=== PATIENT | male | born 1980 | race Caucasian/White ===

== ENCOUNTER 2017-05-14 13:57 | Emergency (ER) | payer OTHER ==
[~2017-05-14] VITALS: Ht 167.6 cm; Wt 75.0 kg
[2017-05-14 14:02] VITALS: Ht 167.6 cm; Wt 75.0 kg
[2017-05-14] MEDS ORDERED: METF500T4 PO (14:55)
[2017-05-14] MEDS ORDERED: CYCL-319 PO (14:56)
[2017-05-14] MEDS ORDERED: HYDR-906 PO (14:56)
[2017-05-14] MEDS ORDERED: morphine 4 MG/ML VIAL IV STA (14:57)
[2017-05-14 15:20] LABS: BASOPHIL # 0.1 10^3/ul (0.0-0.1); BASOPHILS % 0.6 % (0.0-2.0); EOSINOPHILS # 0.3 10^3/ul (0.0-0.5); EOSINOPHILS % 2.3 % (0.0-7.0); HEMATOCRIT 43.3 % (42.0-52.0); HEMOGLOBIN 14.7 g/dl (14.0-18.0); LYMPHOCYTES # 2.6 10^3/ul (0.8-2.9); LYMPHOCYTES % 20.7 % (15.0-51.0); MEAN CORPUSCULAR HEMOGLOBIN 29.3 pg (29.0-33.0); MEAN CORPUSCULAR HGB CONC 33.9 g/dl (32.0-37.0); MEAN CORPUSCULAR VOLUME 86.4 fl (82.0-101.0); MEAN PLATELET VOLUME 9.4 fl (7.4-10.4); MONOCYTE # 0.7 10^3/ul (0.3-0.9); MONOCYTES % 5.2 % (0.0-11.0); NEUTROPHIL # 8.9 10^3/ul (1.6-7.5); NEUTROPHILS % 70.7 % (39.0-77.0); PLATELET COUNT 286 10^3/UL (140-415); RED BLOOD COUNT 5.01 10^6/ul (4.70-6.10); RED CELL DISTRIBUTION WIDTH 11.9 % (11.5-14.5); WHITE BLOOD COUNT 12.6 10^3/ul (4.8-10.8)
[2017-05-14 15:29] LABS: ADD UMIC NO; UR ASCORBIC ACID NEGATIVE (NEGATIVE); UR BILIRUBIN (Dip) NEGATIVE (NEGATIVE); UR BLOOD (Dip) NEGATIVE (NEGATIVE); UR CLARITY CLEAR (CLEAR); UR COLOR STRAW (YELLOW); UR GLUCOSE (Dip) 1+ mg/dL (NEGATIVE); UR KETONES (Dip) TRACE mg/dL (NEGATIVE); UR LEUKOCYTE ESTERASE (Dip) NEGATIVE Leu/ul (NEGATIVE); UR NITRITE (Dip) NEGATIVE (NEGATIVE); UR SPECIFIC GRAVITY (Dip) 1.006 (1.003-1.030); UR TOTAL PROTEIN (Dip) NEGATIVE (NEGATIVE); UR UROBILINOGEN (Dip) NEGATIVE (NEGATIVE)
[2017-05-14 15:41] LABS: ALANINE AMINOTRANSFERASE 27 IU/L (13-69); ALBUMIN 5.1 g/dl (3.3-4.9); ALBUMIN/GLOBULIN RATIO 1.64; ALKALINE PHOSPHATASE 90 IU/L (42-121); ANION GAP 19 (8-16); ASPARTATE AMINO TRANSFERASE 19 IU/L (15-46); BILIRUBIN,INDIRECT 0.4 mg/dl (0-1.1); BILIRUBIN,TOTAL 0.4 mg/dl (0.2-1.3); BLOOD UREA NITROGEN 7 mg/dl (7-20); CALCIUM 9.9 mg/dl (8.4-10.2); CARBON DIOXIDE 26 mmol/L (21-31); CHLORIDE 103 mmol/L (97-110); CREATININE 0.58 mg/dl (0.61-1.24); GLUCOSE 182 mg/dl (70-220); POTASSIUM 3.4 mmol/L (3.5-5.1); SODIUM 145 mmol/L (135-144); TOTAL PROTEIN 8.2 g/dl (6.1-8.1)
[2017-05-14 15:46] LABS: ACETAMINOPHEN < 10.0 ug/ml (10.0-30.0); ETHANOL < 10.0 mg/dl; SALICYLATE < 1.0 mg/dl (5.0-30.0)
[2017-05-14 17:26] LABS: BARBITURATES Negative (NEGATIVE); BENZODIAZEPINES Negative (NEGATIVE); CANNABINOIDS Positive (NEGATIVE); COCAINE Negative (NEGATIVE); OPIATES Negative (NEGATIVE)
--- NOTE | 2017-05-14 18:22 | PSY ---
Date/Time of Note Date/Time of Note DATE: 05/14/17 TIME: 18:14 Psychiatric Subjective Eval Consent Pt consented to telemedicine: Yes Subjective Evaluation Patient location: emergency Chief Complaint: CHRONIC BACK PAIN UNABLE TO MANAGE PAIN Reason for consult: Suicidal statements History of present illness Pt was at a doctors visit today and made comment that he could not take the pain any longer. He reportedly said he had a plan to cut himself. Office called [employer] and [employer] brought him to the ER. Pt reports back surgery with "screws that impinge my nerve." He reports feeling in severe pain. He also admits to feeling depressed, anhedonic, not sleeping but 3-4 hours a night (pain issues), low energy, problems with memory and concentration and frequent thoughts of dying. He attempted to jump out a hospital window last year but his stopped him. Pt feels that he is not safe. When asked if his acting on these thoughts were more emergent or in the future, he replied he felt he would act on them now. He has an appointment scheduled with a psychiatrist pending. Pt is not able to work, has lost libido, feels despair about the future. Past psychiatric history None. Hospitalization: no Family History Denies Medical history Back surgery. Allergies: Coded Allergies: No Known Allergy (Unverified , 05/14/17) Substance Abuse Substance use: No known substance abuse Social History Marital status: Level of education: NA DPA/Conservatorship: No Occupation/Detention: Not employed Psychiatric Objective Eval Physical Examination: Physical Examination: Applicable Sleep: Insomnia Appetite: Decreased Energy: Decreased Interest: Decreased Mental Status Examination: Appearance: Groomed Eye Contact: Good Psychomotor Activity: Normal Behavior: Cooperative Speech: Soft AFFECT: Blunt Mood: Depressed Though Process: Linear Thought Content: Normal Suicidal: Yes Homicidal: No On 72 hour hold: No Orientation: x4 Cognition: Alert Insight: Intact Judgement: Intact Attention Span: Intact Laboratory Results Laboratory Tests Test 05/14/17 15:00 White Blood Count 12.610^3/ul Red Blood Count 5.0110^6/ul Hemoglobin 14.7g/dl Hematocrit 43.3% Mean Corpuscular Volume 86.4fl Mean Corpuscular Hemoglobin 29.3pg Mean Corpuscular Hemoglobin Concent 33.9g/dl Red Cell Distribution Width 11.9% Platelet Count 72695^3/UL Mean Platelet Volume 9.4fl Neutrophils % 70.7% Lymphocytes % 20.7% Monocytes % 5.2% Eosinophils % 2.3% Basophils % 0.6% Nucleated Red Blood Cells % 0.0/100WBC Neutrophils # 8.910^3/ul Lymphocytes # 2.610^3/ul Monocytes # 0.710^3/ul Eosinophils # 0.310^3/ul Basophils # 0.110^3/ul Nucleated Red Blood Cells # 0.010^3/ul Urine Color STRAW Urine Clarity CLEAR Urine pH 8.0 Urine Specific [place] 1.006 Urine Ketones TRACEmg/dL Urine Nitrite NEGATIVEmg/dL Urine Bilirubin NEGATIVEmg/dL Urine Urobilinogen NEGATIVEmg/dL Urine Leukocyte Esterase NEGATIVELeu/ul Urine Hemoglobin NEGATIVEmg/dL Urine Glucose 1+mg/dL Urine Total Protein NEGATIVEmg/dl Sodium Level 145mmol/L Potassium Level 3.4mmol/L Chloride Level 103mmol/L Carbon Dioxide Level 26mmol/L Anion Gap 19 Blood Urea Nitrogen 7mg/dl Creatinine 0.58mg/dl Glucose Level 182mg/dl Calcium Level 9.9mg/dl Total Bilirubin 0.4mg/dl Direct Bilirubin 0.00mg/dl Indirect Bilirubin 0.4mg/dl Aspartate Amino Transf (AST/SGOT) 19IU/L Alanine Aminotransferase (ALT/SGPT) 27IU/L Alkaline Phosphatase 90IU/L Total Protein 8.2g/dl Albumin 5.1g/dl Globulin 3.10g/dl Albumin/Globulin Ratio 1.64 Salicylates Level < 1.0mg/dl Urine Opiates Screen Negative Acetaminophen Level < 10.0ug/ml Urine Barbiturates Negative Urine Amphetamines Screen Negative Urine Benzodiazepines Screen Negative Urine Cocaine Screen Negative Urine Cannabinoids Positive Ethyl Alcohol Level < 10.0mg/dl Assessment and Plan Assessment/Diagnosis [place] I: Major Depressive Disorder, Single Episode, Severe without Psychosis Recommendation/Plan Medication Management Per inpatient psychiatry Psychotherapy N/A Pt. Caregiver/Family Education N/A Follow-up/Disposition Patient no longer feels safe out of the hospital. He has suicidal thinking with a plan. He has a recent attempt, per patient, that was stopped by his . Recommend inpatient psychiatry. He is willing to go voluntary. However , I am concerned about the impulsive nature of his action one year ago and his expectation for pain control. Recommend 5150 for SI due to suicidal ideation with plan and an awareness that he cannot keep himself safe. GAYLE RAMOS May 14, 2017 18:22
--- NOTE | 2017-05-14 19:36 | ERA ---
ER Documentation Chief Complaint Date/Time DATE: 05/14/17 TIME: 19:29 Chief Complaint CHRONIC BACK PAIN UNABLE TO MANAGE PAIN HPI This is a 37-year-old male with a history of chronic low back pain, diabetes, depression with multiple episodes of suicidal ideations and attempts secondary to pain who is presenting to the emergency department today with suicidal ideations and a plan because he cannot get his back pain under control. The patient has seen his physicians for this, including his primary doctor as well as his orthopedic doctor. He is on Maurepas, Flexeril, Tylenol and ibuprofen for his pain, but nothing seems to work. He has strength and he is able to walk, but it is antalgic. His pain is worse on the left side and described as a sharp electric type pain radiating from his back down the leg. He reports multiple attempts on his life, because he feels like he cannot get on top of this pain. He reports attempting to use kitchen knives in the past or trying to jump out of windows. The patient reports that he cannot sleep. He does not have any interest in anything. He does not have any energy. He does not have psychomotor slowing or agitation. He does not have homicidal ideations, but he does have suicidal ideations as described above. He was actually at his primary doctor's office today when he described his desire to kill himself. His doctor called an ambulance for transfer to the emergency department given concerns of self-harm. ROS All systems reviewed and are negative except as per history of present illness. Medications Home Meds Reported Medications Hydrocodone/Acetaminophen (Maurepas 5-325 Tablet) 1 Each Tablet, 1 EACH PO BID Y for SEVERE PAIN LEVEL 7-10, TAB 05/14/17 Cyclobenzaprine Hcl* (Cyclobenzaprine Hcl*) 10 Mg Tablet, 10 MG PO BID Y for MUSCLE SPASMS, #60 TAB 05/14/17 Metformin* (Glucophage*) 500 Mg Tab, 500 MG PO BID, #30 TAB 05/14/17 Allergies Allergies: Coded Allergies: No Known Allergy (Unverified , 05/14/17) PMhx/Soc History of Surgery: Yes (back) Anesthesia Reaction: No Hx Neurological Disorder: No Hx Respiratory Disorders: No Hx Cardiac Disorders: Yes (HTN) Hx Psychiatric Problems: No Hx Miscellaneous Medical Probl: Yes (DM, high cholesterol) Hx Alcohol Use: No Hx Substance Use: Yes (marijuana) Hx Tobacco Use: No Smoking Status: Current every day smoker FmHx Family History: diabetes, No coronary disease Physical Exam Vitals Vital Signs Date Time Temp Pulse Resp B/P Pulse Ox O2 Delivery O2 Flow Rate FiO2 05/14/17 18:34 84 20 126/74 99 Room Air 05/14/17 14:02 97.5 83 18 131/89 99 Physical Exam Const: Anxious, no apparent distress Head: Atraumatic Eyes: Normal Conjunctiva ENT: Normal External Ears, Nose and Mouth. Neck: Full range of motion..~ No meningismus. Resp: Clear to auscultation bilaterally Cardio: Regular rate and rhythm, no murmurs Abd: Soft, non tender, non distended. Normal bowel sounds Skin: No petechiae or rashes Back: No flank tenderness, significant midline lumbar pain, positive straight leg raise at 30 on the left Ext: No cyanosis, or edema Neur: Awake and alert Psych: Depressed affect Result Diagram: 05/14/17 1500 05/14/17 1500 Results 24 hrs Laboratory Tests Test 05/14/17 15:00 White Blood Count 12.610^3/ul Red Blood Count 5.0110^6/ul Hemoglobin 14.7g/dl Hematocrit 43.3% Mean Corpuscular Volume 86.4fl Mean Corpuscular Hemoglobin 29.3pg Mean Corpuscular Hemoglobin Concent 33.9g/dl Red Cell Distribution Width 11.9% Platelet Count 89009^3/UL Mean Platelet Volume 9.4fl Neutrophils % 70.7% Lymphocytes % 20.7% Monocytes % 5.2% Eosinophils % 2.3% Basophils % 0.6% Nucleated Red Blood Cells % 0.0/100WBC Neutrophils # 8.910^3/ul Lymphocytes # 2.610^3/ul Monocytes # 0.710^3/ul Eosinophils # 0.310^3/ul Basophils # 0.110^3/ul Nucleated Red Blood Cells # 0.010^3/ul Urine Color STRAW Urine Clarity CLEAR Urine pH 8.0 Urine Specific [place] 1.006 Urine Ketones TRACEmg/dL Urine Nitrite NEGATIVEmg/dL Urine Bilirubin NEGATIVEmg/dL Urine Urobilinogen NEGATIVEmg/dL Urine Leukocyte Esterase NEGATIVELeu/ul Urine Hemoglobin NEGATIVEmg/dL Urine Glucose 1+mg/dL Urine Total Protein NEGATIVEmg/dl Sodium Level 145mmol/L Potassium Level 3.4mmol/L Chloride Level 103mmol/L Carbon Dioxide Level 26mmol/L Anion Gap 19 Blood Urea Nitrogen 7mg/dl Creatinine 0.58mg/dl Glucose Level 182mg/dl Calcium Level 9.9mg/dl Total Bilirubin 0.4mg/dl Direct Bilirubin 0.00mg/dl Indirect Bilirubin 0.4mg/dl Aspartate Amino Transf (AST/SGOT) 19IU/L Alanine Aminotransferase (ALT/SGPT) 27IU/L Alkaline Phosphatase 90IU/L Total Protein 8.2g/dl Albumin 5.1g/dl Globulin 3.10g/dl Albumin/Globulin Ratio 1.64 Salicylates Level < 1.0mg/dl Urine Opiates Screen Negative Acetaminophen Level < 10.0ug/ml Urine Barbiturates Negative Urine Amphetamines Screen Negative Urine Benzodiazepines Screen Negative Urine Cocaine Screen Negative Urine Cannabinoids Positive Ethyl Alcohol Level < 10.0mg/dl Current Medications Medications (Trade) Dose Ordered Sig/Kodak Route PRN Reason Start Time Stop Time Status Last Admin Dose Admin Morphine Sulfate (morphine) 4 mg ONCE STAT IV 05/14/17 14:57 05/14/17 14:58 DC 05/14/17 15:23 Procedures/MDM The patient's presenting with chronic exacerbation of his back pain but more importantly suicidal ideations with a plan. The patient does not have adequate control of his pain at home and it seems to be too much for him. He has signs and symptoms of major depressive disorder and I am concerned of self-harm. The patient was placed on a psychiatric hold in the emergency department and a tele-psych consult was placed. Psychiatrist agreed that the patient required transfer to psychiatric facility for admission. With respect to his back pain, the patient was given morphine with adequate relief of his pain symptoms. The patient's blood work was obtained and reviewed. The patient has a mild leukocytosis but no left shift. I do believe this is a stress reaction. He does not have signs and symptoms of a systemic infection. The patient's CMP is unremarkable. The patient is not intoxicated. His UDS was positive only for marijuana, which the patient admits to using to help relieve his pain. His Tylenol and salicylate levels were negative. The patient is medically cleared for transfer. Departure Diagnosis: Primary Impression: Suicidal ideation Additional Impression: Back pain Qualified Code: M54.41 - Chronic midline low back pain with bilateral sciatica Condition: GAL Gayle MD May 14, 2017 19:36
[2017-05-14] MEDS ORDERED: morphine 10 MG INJ IM ONE (23:00)
[2017-05-15] MEDS ORDERED: morphine 10 MG INJ IM ONE (05:30)
[2017-05-15] MEDS ORDERED: KETOROLAC 30 MG INJ IM STA (09:39)
[2017-05-15] MEDS ORDERED: KETOROLAC 30 MG INJ IV STA (09:44)
[2017-05-15] MEDS: metFORMIN 500 MG TAB PO SCH ×2 (10:19→20:53)
[2017-05-15] MEDS ORDERED: LORAZEPAM 2 MG INJ IV ONE ×2 (11:00→20:00)
--- NOTE | 2017-05-15 12:38 | RADRPT ---
PROCEDURE: CT Brain without. CLINICAL INDICATION: Fall, pain. TECHNIQUE: A CT of the brain was performed on multidetector high-resolution CT scanner utilizing a xial sections from the skull base through the vertex without contrast. The scan was reviewed in sof t tissue brain and high frequency resolution bone algorithm windows. Images were reviewed on a high -resolution PACS workstation. One or more the following does reduction techniques were utilized: Aut omated exposure control, adjustment of the mA/ or kV according to patient's size, or use of iterativ e reconstruction technique. The exam CTDI = 44.19 mGy and the DLP = 630.2 mGy-cm. COMPARISON: None available. FINDINGS: The ventricles and sulci are age-appropriate. There is no intracranial hemorrhage, mass effect or mi dline shift. No abnormal intra-axial or extra-axial fluid collections are seen. The ryan/white octavia er differentiation is preserved. No acute skull abnormality is noted. The visualized paranasal sinus es are essentially clear. IMPRESSION: 1. No acute intracranial hemorrhage, transcortical infarction or mass effect. RPTAT: HH .Aditya Sprague MD, MD Date Time Electronically viewed and signed by .Aditya Sprague MD, MD on 05/15/2017 12:38 .N/
--- NOTE | 2017-05-15 12:44 | RADRPT ---
PROCEDURE: CT cervical spine without contrast CLINICAL INDICATION: Trauma. Neck pain. TECHNIQUE: CT scan of the cervical spine [facility] No [facility] contrast was administered. Coronal and sagittal reformatted images were obtained from th e axial source images. Images were reviewed on a high-resolution PACS workstation. One or more the f ollowing does reduction techniques were utilized: Automated exposure control, adjustment of the mA/ or kV according to patient's size, or use of iterative reconstruction technique. Exam CTDI = 22.11 m Gy and the DLP = 421.33 mGy-cm. COMPARISON: None available. FINDINGS: There is straightening of the alignment of the cervical spine with loss of the normal cervical lordo sis. Alignment remains intact. No acute fracture or dislocation is seen. The vertebral body heigh ts are preserved. No significant spinal canal or foraminal stenosis is noted. No mass, hematoma, or other soft tissue abnormality is seen. There are minimal degenerative changes of the cervical spine, manifested by osteophytosis and disc h eight narrowing, most prominent at C4-C5. The C2-C3 disk is hypoplastic. IMPRESSION: 1. Straightening of normal cervical lordosis. 2. No acute fracture or traumatic subluxation. 3. Minimal discogenic disease mainly at C4-C5. RPTAT: HH .Aditya Sprague MD, MD Date Time Electronically viewed and signed by .Aditya Sprague MD, MD on 05/15/2017 12:44 .N/
--- NOTE | 2017-05-15 12:56 | RADRPT ---
PROCEDURE: CT Lumbar Spine. CLINICAL INDICATION: Fall. Low back pain TECHNIQUE: The study was performed on a multidetector CT scanner. Volumetric data was obtained th rough the lumbar spine and reformatted in the axial plane. Sagittal and coronal reformations were cr eated from the raw axial data. One or more the following does reduction techniques were utilized: Au tomated exposure control, adjustment of the mA/ or kV according to patient's size, or use of iterati ve reconstruction technique. The images were reviewed on a PACS workstation. CTDI 14.43 mGy. DLP 431.48 mGy-cm. COMPARISON: No prior studies are available for comparison. FINDINGS: Postsurgical changes of prior discectomy and posterior lumbar fusion at L4-5 and L5-S1 with transped icular screw and ajith construct as well as disk spacers. Left L5 laminectomy and facetectomy is noted . The left L5 transpedicular screw extends approximately 10 mm beyond the cortex. Bilateral S1 tra nspedicular screw extends beyond the cortex, approximately 12 mm on the right and 7 mm on the left. Otherwise no evidence of hardware fracture or loosening is noted. Right iliac bone graft donor site is noted. There is straightening of the normal lumbar lordosis. No lumbar spine subluxation is noted. The vert ebral body heights are preserved. There is no significant paravertebral soft tissues swelling or mas s. T12-L1: The disk is normal in height. No significant disk bulge or protrusion is seen. The central canal and neural foramina appear adequately patent. L1-L2: The disk is normal in height. No significant disk bulge or protrusion is seen. The central c anal and neural foramina appear adequately patent. L2-L3: The disk is normal in height. No significant disk bulge or protrusion is seen. The central c anal and neural foramina appear adequately patent. L3-L4: The disk is normal in height. No significant disk bulge or protrusion is seen. The central c anal and neural foramina appear adequately patent. L4-L5: Discectomy and posterior fusion postsurgical changes as above. No significant disk bulge or protrusion is seen. The central canal and neural foramina appear adequately patent. L5-S1: Discectomy and posterior fusion postsurgical changes as above. No significant disk bulge or protrusion is seen. The central canal and neural foramina appear adequately patent. IMPRESSION: 1. No acute lumbar spine fracture or subluxation. 2. Straightening of the normal lumbar lordosis. 3. Postsurgical changes of prior discectomy and posterior lumbar fusion at L4-5 and L5-S1. Left L5 laminectomy and facetectomy. Transpedicular screws extend beyond the cortex at bilateral S1 and left L5 levels. RPTAT: HH .Aditya Sprague MD, Date Time Electronically viewed and signed by .Aditya Sprague MD, on 05/15/2017 12:56 .N/
[2017-05-15] MEDS ORDERED: HYDROmorphONE 1 MG/ML SYG IV STA (19:45)
[2017-05-15] MEDS ORDERED: HYDROmorphONE 1 MG/ML SYG ONE (19:46)
[2017-05-15] MEDS ORDERED: LORAZEPAM 2 MG INJ ONE (19:47)
[2017-05-16] MEDS ORDERED: ACETAMINOPHEN 500 MG TAB PO STA (05:08)
[2017-05-16] MEDS ORDERED: HALOPERIDOL 5 MG INJ IM ONE ×2 (05:30)
[2017-05-16] MEDS ORDERED: DIPHENHYDRAMINE 50 MG INJ IM ONE (05:30)
--- NOTE | 2017-05-16 05:56 | EN ---
Date/Time of Note Date/Time of Note DATE: 05/16/17 TIME: 05:54 ER Progress Note I was observing this I called patient who is calm and slept comfortably all night long. morning around 5 AM the patient began screaming obscenities and shouting the "the nursing staff initiate ". He threatened to hang himself of some he did give him Dilaudid. I did give him 10 mg of Haldol IM as well as 25 mg of Benadryl which did calm the patient down. PARMJIT BURNS DO May 16, 2017 05:55
[2017-05-16] MEDS ORDERED: LISI10TA2 PO (07:58)
[2017-05-16] MEDS ORDERED: SERT50TA6 PO (07:58)
[2017-05-16] MEDS ORDERED: SERTRALINE 50 MG TAB PO ONE (08:30)
[2017-05-16] MEDS: metFORMIN 500 MG TAB PO SCH (09:04)
[2017-05-16] MEDS ORDERED: DIAZEPAM 5 MG TAB PO ONE (12:00)
[2017-05-16 16:01] VITALS: BP 109/69; PULSE 88; RESP 18; TEMP 98
== END 2017-05-16 16:17 ==
LOC: E/R 13:57
DX: M54.41 Lumbago with sciatica, right side (principal); M54.42 Lumbago with sciatica, left side; R45.851 Suicidal ideations; E11.9 Type 2 diabetes mellitus without complications; I10 Essential (primary) hypertension; F17.210 Nicotine dependence, cigarettes, uncomplicated; R51 Headache; Z79.84 Long term (current) use of oral hypoglycemic drugs
CPT/HCPCS: 36415; 70450; 72125; 72131; 80053; 80306; 80307; 81003; 82962; 85025; 93005; 96372; 96374; 96375; 96376; J1170; J1200; J1630; J1885; J2060; J2270; Z7502; Z7610